=== PATIENT | male | born 1975 | race Caucasian/White ===

== ENCOUNTER → 2021-03-05 08:01 | Outpatient (CLI) | payer OTHER, SELFPAY ==
--- NOTE | ~2021-03-05 | MR_ITS ---
EXAMINATION: MR ankle LT wo con DATE: 03/05/2021 08:57 INDICATION: Left ankle pain. Peroneal tendon tear. TECHNIQUE: Magnetic resonance imaging (MRI) of the left ankle was performed without intravenous contr ast. Sequences included sagittal, coronal, and axial proton-density weighted fast spin echo without a nd with fat saturation. COMPARISON: None. FINDINGS: Medial ankle ligaments: Deep and superficial deltoid ligaments as well as the spring ligament are normal. Lateral ankle ligaments: The anterior and posterior inferior tibiofibular ligaments are normal. The anterior talofibular, calc aneofibular and posterior talofibular ligaments are normal. Tendons: Achilles tendon is normal. Small amount of fluid surrounding the peroneus longus and brevis tendons c onsistent with mild tenosynovitis. Mild tendinopathy and longitudinal split tears of both the peroneu s longus and brevis tendons. The tibialis anterior and extensor hallucis longus and extensor digitoru m longus tendons are normal. The tibialis posterior, flexor digitorum longus and flexor hallucis long us tendons are normal. Normal small amount of fluid extending along the flexor hallux longus tendon s dayana. Plantar fascia: Plantar aponeurosis is normal. Bones/other: Prominent marrow edema and mild surrounding soft tissue edema about a nondisplaced transverse fractur e at the proximal metadiaphyseal region of the fifth metatarsal located 2 cm from the proximal tip of the metatarsal (Chaney fracture). Alignment remains essentially anatomic. Otherwise normal marrow sig nal with no other fractures, reactive edema or pathologic marrow replacing process. Minimal osteoarth ritis at several of the joints in the midfoot. Physiologic amount fluid in the joint spaces. IMPRESSION: 1. Nondisplaced extra-articular Chaney fracture at the proximal left fifth metatarsal. 2. Mild peroneal tenosynovitis with mild tendinopathy and longitudinal split tears of both the perone us longus and brevis tendons. Reviewed, dictated and finalized at location A. [employer] IMPRESSION: 1. Nondisplaced extra-articular Chaney fracture at the proximal left fifth metat arsal. 2. Mild peroneal tenosynovitis with mild tendinopathy and longitudinal split te ars of both the peroneus longus and brevis tendons.
== END ==
PROVIDERS: Visit Provider Podiatrist Foot & Ankle Surgery
DX: S92.355A Nondisplaced fracture of fifth metatarsal bone, left foot, initial encounter for closed fracture (principal); X58.XXXA Exposure to other specified factors, initial encounter
CPT/HCPCS: 73721

== ENCOUNTER 2023-12-19 15:37 | Outpatient (CLI) | payer OTHER, SELFPAY ==
--- NOTE | ~2023-12-19 | XR_ITS ---
3 VIEWS LUMBAR SPINE Ordering provider: Jerad Briceno, [place] History: . disc golf injury 2 days ago lbp right side, down right leg . Comparison: None. FINDINGS: VERTEBRAL BODIES: Mild dextroscoliosis No visible fracture or subluxation. Anterior loss of height of T11 and T12 most likely chronic. DISK SPACES: Narrowing of the disc T12-L1. SOFT TISSUES: Normal. IMPRESSION: No acute osseous abnormality lumbar spine. Reviewed, dictated and finalized at location A.
== END 2023-12-19 15:38 | disposition home or self-care (01) ==
PROVIDERS: PCP Family Medicine; Visit Provider Chiropractor
DX: M54.50 Low back pain, unspecified (principal)
CPT/HCPCS: 72110